=== PATIENT | female | born 1975 | race Caucasian/White ===

== ENCOUNTER 2022-12-03 12:11 | Emergency (ER) | payer OTHER, SELFPAY ==
--- NOTE | 2022-12-03 12:27 | ED.GENADULT ---
HPI - General Adult General Chief complaint: Overdose Stated complaint: ABD PAIN Time Seen by Provider: 12/03/22 12:26 Source: patient and EMS Mode of arrival: EMS Limitations: no limitations History of Present Illness HPI narrative: Patient is a 47 year old assigned female at with no reported medical history presenting to the emergency department today after drug use. Patient was immediately given intranasal narcan and became able to answer questions more appropriately. Patient states that she used earlier today but did not specify what she used. Patient was found falling asleep by bystanders. Patient denies any dizziness, lightheadedness, abdominal pain, nausea, vomiting, fever, chills, blurry vision, double vision, loss of vision, chest pain, difficulty breathing, shortness of breath, back pain, night sweats, pain with urination, increased urinary frequency, increased urinary urgency, blood in her urine or stool, syncope or a near syncopal episode, recent trauma or falls, bowel incontinence, bladder incontinence, bowel retention, bladder retention, or any other complaints at this time. Onset (ago): hour(s) Relieving factors: none Exacerbating factors: none Associated symptoms: denies other symptoms Treatments prior to arrival: none Related Data Allergies Allergy/AdvReac Type Severity Reaction Status Date / Time No Known Allergies Allergy Verified 12/03/22 12:27 Review of Systems Constitutional: Constitutional: Reports no additional constitutional complaints, Denies chills, Denies fever(s) and Denies night sweats Eyes: Eyes: Reports no additional eye complaints, Denies blurry vision, Denies change in vision, Denies diplopia, Denies eye discharge, Denies loss of vision and Denies eye pain ENT: Denies dizziness Cardiovascular: Cardiovascular: Reports no additional cardiovascular complaints, Denies chest pain, Denies lightheadedness, Denies Loss of Consciousness and Denies dyspnea Respiratory: Respiratory: Reports no additional respiratory complaints and Denies dyspnea Gastrointestinal: Gastrointestinal: Reports no additional gastrointestinal complaints, Denies abdominal pain, Denies melena, Denies hematochezia, Denies change in bowel habits and Denies change in stool character Genitourinary: Genitourinary: Denies hematuria, Denies urinary frequency, Denies dysuria, Denies urinary incontinence, Denies urinary hesitancy and Denies urinary urgency Musculoskeletal: Musculoskeletal: Reports no additional musculoskeletal complaints, Denies numbness and Denies tingling Neurologic: Denies dizziness, Denies loss of vision, Denies numbness and Denies tingling Psychiatric: Psychiatric: Reports no additional psychiatric complaints Endocrine: Endocrine: Reports no additional endocrine complaints Hematologic/Lymphatic: Hematologic/Lymphatic: Reports no additional hematologic/lymphatic complaints Allergic/Immunologic: Allergic/Immunologic: Reports no additional allergic/immunologic complaints [facility] Past Medical History Attestation statement: The following information was validated with the patient. Source: old records reviewed and nursing notes reviewed Social History Social History Alcohol intake: current Smoked in Last 30 Days: Yes Use of substances other than those prescribed or required for medical reasons: No Advance Directives: No Advance Directives Information Provided: No Physical Exam ED Vital Signs: Vital Signs - 24 hr 12/03/22 12:35 12/03/22 13:43 12/03/22 13:53 Temperature 97.6 F 97.7 F Pulse Rate 62 56 58 Respiratory Rate 20 17 19 Blood Pressure 114/73 106/66 Pulse Oximetry 95 97 97 Oxygen Delivery Method Room Air Nasal Cannula Room Air Oxygen Flow Rate 2 12/03/22 15:24 12/03/22 16:14 12/03/22 17:32 Temperature 97.1 F Pulse Rate 55 53 54 Respiratory Rate 19 18 19 Blood Pressure 98/60 100/70 121/77 Pulse Oximetry 97 99 97 Oxygen Delivery Method Nasal Cannula Nasal Cannula Room Air Oxygen Flow Rate 3 2 BMI result Body Mass Index 35.1 Const General: cooperative, no acute distress, alert and awake Nutritional Appearance: well nourished Orientation/consciousness: patient oriented x3 Limitations: no limitations [facility] Head: Yes normal to inspection and Yes atraumatic Ears: hearing grossly normal bilaterally and external ears normal General nose exam: Normal external nose present, no nasal discharge noted and no epistaxis Face and sinus: Yes normal facial exam, No abrasion and No laceration Mouth: Normal oral and palatal mucosa present, no drooling and no muffled voice Eyes General: appearance normal, both eyes and all related structures Periorbital: periorbital findings normal Eyelids: Yes eyelids normal Conjunctivae: conjunctivae normal Pupils: Equal, round and reactive pupils present and Pinpoint pupils bilaterally EOM: EOMs intact bilaterally Neck Neck: Yes normal visual inspection, Yes full ROM and Yes no lymphadenopathy Chest Chest palpation & inspection: normal inspection of the chest Resp Effort & Inspection: normal respiratory effort and able to speak in complete sentences Auscultation: clear to auscultation bilaterally Cardio Rate: regular rate Rhythm: regular rhythm GI Inspection: Yes normal to inspection Palpation (GI): Soft to palpation, not firm, nontender and no guarding Neuro General: patient oriented x3 and moves all extremities Cranial nerves: Yes Equal, round and reactive pupils present Cognition (Neuro): normal cognition Motor exam (neuro): 5/5 motor strength present throughout Sensory Exam: Normal double simultaneous stimulation for sensation Coordination: [id number] test normal Extrem General: Yes normal to inspection, Yes full ROM and Yes capillary refill normal Psych Appearance: grossly normal Mental Status: mental status grossly normal Affect: normal affect Attitude: cooperative Thought process: Normal thought process present Thought content: Normal thought content present Insight: Good insight present (Psych) Course Reevaluation(s) Reevaluation #1: Patient is seen by the care team and reports that she did not use any drugs today. She reports this to me as well. She does not wish for any resources regarding detox. The patient would like to be discharged at this time. Time: 18:31 Medications Administered Discontinued Medications Generic Name Dose Route Start Last Admin Trade Name Freq PRN Reason Stop Dose Admin Naloxone HCl 4 mg 12/03/22 15:59 12/03/22 17:44 Naloxone Hcl Nasal 4 Mg [place] NOSTRILALT 12/03/22 16:00 4 mg ONCE ONE Administration Medical Decision Making Medical Decision Making [facility] Narrative: Patient is a 47 year old assigned female at with no reported medical history presenting to the emergency department today after drug use. Patient's physical exam was as noted in the physical exam portion of this note. Patient's blood work was unremarkable. Patient's urine showed is pending at this time, including the patient's drug urine screen. Patient's EKG was unremarkable. I explained my physical exam findings as well as all test results to the patient. I answered all questions asked by the patient. Patient is resting comfortably at this time and will be placed in physician observation until she is awake enough to discharge safely and/or recovery team meets with the patient and determines a disposition. Differential Diagnosis Differential Diagnoses: The differential diagnosis associated with the presentation includes Overdose Drug use Opiate use Admission/Observation Consideration of admission/observation: Escalation of care including admission/observation considered Patient would have been admitted to the hospital had her work up had any findings where hospital admission was appropriate and her clinical presentation warranted hospital admission. Lab Data MDM Lab Attestation statement: I reviewed the patient's lab results. My interpretation of these studies and their corresponding values is that they are grossly normal with the exception of the pending urine. 12/03/22 12:57 12/03/22 12:57 Labs: Lab Results 12/03/22 12/03/22 12/03/22 Range/Units 12:57 12:57 12:57 WBC 5.0 (4.8-10.8) X10*3/uL RBC 5.84 H (4.20-5.50) X10*6/uL Hgb 13.4 (12.0-16.0) g/dl Hct 43.0 (37.0-47.0) % MCV 73.6 L (80.0-98.0) fL MCH 22.9 L (27.0-33.0) pg MCHC 31.2 (31.0-35.0) g/dl RDW 14.8 (11.0-16.0) % Plt Count 215 (160-400) X10*3/uL MPV 10.4 (9.4-12.3) fL Immature Gran % (Auto) 0.2 (0.0-0.4) % Neut % (Auto) 54.9 (45-73) % Lymph % (Auto) 26.9 (20-40) % Sheridan % (Auto) 15.2 H (2-11) % Eos % (Auto) 2.2 (0-4) % Baso % (Auto) 0.6 (0-2) % Lymph # (Auto) 1.3 (1.2-4.9) X10*3/uL Sheridan # (Auto) 0.8 (0.1-1.2) X10*3/uL Eos # (Auto) 0.1 (0.0-0.4) X10*3/uL Baso # (Auto) 0.0 (0.0-0.2) X10*3/uL Abs Immat Gran (auto) 0.01 (0.00-0.03) X10*3/uL Absolute Neuts (auto) 2.7 (2.0-8.3) x10*3/uL Absolute Nucleated RBC 0.000 (0.0-0.012) X10*3/uL Nucleated RBC % (auto) 0.0 (0.0-0.2) /100WBC Sodium 143 (135-145) mmol/L Potassium 3.9 (3.3-5.1) mmol/L Chloride 106 (96-108) mmol/L Carbon Dioxide 28 (22-29) mmol/L Anion Gap 13 (12-20) BUN 17 H (9-16) mg/dL Creatinine 0.69 (0.5-1.4) mg/dL Estim Creat Clear Calc 120.9 Estimated GFR > 60 Random Glucose 96 (60-115) mg/dL Calcium 9.2 (8.4-10.2) mg/dL Total Bilirubin 0.9 (0.0-1.0) mg/dL AST 32 H (5-31) U/L ALT 22 (0-31) U/L Alkaline Phosphatase 98 (39-117) U/L Total Protein 7.6 (6.5-8.0) g/dL Albumin 3.6 (3.5-5.0) g/dL Salicylates (15-30) mg/dL Acetaminophen (<30) mcg/mL Ethyl Alcohol < 10 mg/dL COVID-19 ([facility]) Negative (Negative) COVID-19 Clin Com See Note 12/03/22 Range/Units 12:57 WBC (4.8-10.8) X10*3/uL RBC (4.20-5.50) X10*6/uL Hgb (12.0-16.0) g/dl Hct (37.0-47.0) % MCV (80.0-98.0) fL MCH (27.0-33.0) pg MCHC (31.0-35.0) g/dl RDW (11.0-16.0) % Plt Count (160-400) X10*3/uL MPV (9.4-12.3) fL Immature Gran % (Auto) (0.0-0.4) % Neut % (Auto) (45-73) % Lymph % (Auto) (20-40) % Sheridan % (Auto) (2-11) % Eos % (Auto) (0-4) % Baso % (Auto) (0-2) % Lymph # (Auto) (1.2-4.9) X10*3/uL [place]idan # (Auto) (0.1-1.2) X10*3/uL Eos # (Auto) (0.0-0.4) X10*3/uL Baso # (Auto) (0.0-0.2) X10*3/uL Abs Immat Gran (auto) (0.00-0.03) X10*3/uL Absolute Neuts (auto) (2.0-8.3) x10*3/uL Absolute Nucleated RBC (0.0-0.012) X10*3/uL Nucleated RBC % (auto) (0.0-0.2) /100WBC Sodium (135-145) mmol/L Potassium (3.3-5.1) mmol/L Chloride (96-108) mmol/L Carbon Dioxide (22-29) mmol/L Anion Gap (12-20) BUN (9-16) mg/dL Creatinine (0.5-1.4) mg/dL Estim Creat Clear Calc Estimated GFR Random Glucose (60-115) mg/dL Calcium (8.4-10.2) mg/dL Total Bilirubin (0.0-1.0) mg/dL AST (5-31) U/L ALT (0-31) U/L Alkaline Phosphatase (39-117) U/L Total Protein (6.5-8.0) g/dL Albumin (3.5-5.0) g/dL Salicylates < 5.0 L (15-30) mg/dL Acetaminophen < 17 (<30) mcg/mL Ethyl Alcohol mg/dL COVID-19 ([facility]) (Negative) COVID-19 Clin Com Independent Interpretation I performed an independent interpretation of an: EKG Interpretation: Vent. Rate: 059 BPM ? ? Atrial Rate: 059 BPM P-R Int: 144 ms? QRS Dur: 092 ms QT Int: 452 ms ? ? ? P-R-T Axes: 066 081 062 degrees QTc Int: 447 ms ? Sinus bradycardia Otherwise normal ECG No previous ECGs available ? Referred By: Najma Guthrie ? Electronically Signed By:NELI CLIFTON Dictated By: Neli Cleveland DO Signed By: Electronically signed by Neli Cleveland DO 12/03/22 4438 Independent Historian Clinical information obtained from an independent historian. History obtained from or confirmed by: EMS (EMS provided additional history and confirmed the history provided by the patient.) Chronic Conditions Patient?s care impacted by: Other (drug use) Social Determinants Patient?s care significantly limited by Social Determinants of Health including: Other Social Determinant of Health (drug use) Critical Care Time Critical Care Time Critical Care Time: Yes Total Critical Care Time: 40 Attestation: I spent 40 minutes of Critical Care Time with this patient. This does not include time spent on separately reported billable procedures. Discharge Plan Discharge Clinical Impression: Drug overdose Patient Disposition: Home, Self-Care Instructions: Adult Overdose (ED) Additional Instructions: You came in because you were unresponsive at a bus stop. Your responded to Narcan. You declined any help with resources regarding detox. You may follow-up with her primary doctor
--- NOTE | 2022-12-03 12:27 | ECG_ITS ---
Test Reason : OVERDOSE Blood Pressure : / mmHG Vent. Rate : 059 BPM Atrial Rate : 059 BPM P-R Int : 144 ms QRS Dur : 092 ms QT Int : 452 ms P-R-T Axes : 066 081 062 degrees QTc Int : 447 ms Sinus bradycardia Otherwise normal ECG No previous ECGs available Referred By: Namja Guthrie Electronically Signed By:NELI CLIFTON
--- NOTE | 2022-12-03 12:30 | PC.NURSE ---
pt unable to stay awake. pt drowsy. pt given narcan. pt more alert. vss.
[2022-12-03 12:35] VITALS: BP 114/73; BP 132/82; PULSE 57; PULSE 62; RESP 20; TEMP 36.4; O2SAT 95; O2SAT 97; BMI 35.1
--- NOTE | 2022-12-03 12:40 | PC.NURSE ---
pt administered narcan 4mg intral nasal upon arrival from ems, pt very drowsy, with pin point pupils, pt did have a good response to the narcan originally-answering question/yawning/shivering and staying awake, ns on the monitor in the 60's sating 96% on room air, capnography at 33
--- NOTE | 2022-12-03 12:43 | PC.NURSE ---
pt slightly drowsy but wakes up to verbal stimulus. vss.
--- NOTE | 2022-12-03 12:48 | PC.NURSE ---
pt o2 sat drop to 85. pt put on 3L nasal cannula. sat maintain 96%.
[2022-12-03 13:00] LABS: MANUAL DIFF FLAG NO
[2022-12-03 13:02] LABS: Basophils Percent Auto 0.6 % (0-2); Eosinophils Absolute Auto 0.1 X10*3/uL (0.0-0.4); Eosinophils Percent Auto 2.2 % (0-4); Hemoglobin 13.4 g/dl (12.0-16.0); Imm Gran Abs Auto 0.01 X10*3/uL (0.00-0.03); Imm Gran Pct Auto 0.2 % (0.0-0.4); Lymphocytes Absolute Auto 1.3 X10*3/uL (1.2-4.9); Lymphocytes Percent Auto 26.9 % (20-40); Mean Corpuscular HGB Conc 31.2 g/dl (31.0-35.0); Mean Corpuscular Hemoglobin 22.9 pg (27.0-33.0); Mean Corpuscular Volume 73.6 fL (80.0-98.0); Mean Platelet Volume 10.4 fL (9.4-12.3); Monocytes Absolute Auto 0.8 X10*3/uL (0.1-1.2); Monocytes Percent Auto 15.2 % (2-11); Neutrophils Absolute Auto 2.7 x10*3/uL (2.0-8.3); Neutrophils Percent Auto 54.9 % (45-73); Platelet Count 215 X10*3/uL (160-400); Red Blood Count 5.84 X10*6/uL (4.20-5.50); Red Cell Distribution Width 14.8 % (11.0-16.0)
[2022-12-03 13:17] LABS: COVID-19 Test Negative (Negative); IDNOW Serial# 55D5AD1C
[2022-12-03 13:27] LABS: Acetaminophen LAB < 17 mcg/mL (<30); Salicylate < 5.0 mg/dL (15-30)
[2022-12-03 13:32] LABS: Alanine Aminotransferase 22 U/L (0-31); Albumin Level 3.6 g/dL (3.5-5.0); Alkaline Phosphatase 98 U/L (39-117); Anion Gap 13 (12-20); Aspartate Amino Transferase 32 U/L (5-31); Bilirubin Total 0.9 mg/dL (0.0-1.0); Blood Urea Nitrogen 17 mg/dL (9-16); Calcium 9.2 mg/dL (8.4-10.2); Carbon Dioxide 28 mmol/L (22-29); Chloride 106 mmol/L (96-108); Creatinine Clr Calc Pharmacy 120.9; Estimated Glomerular Filt Rate > 60; Ethanol < 10 mg/dL; Glucose Random 96 mg/dL (60-115); Potassium 3.9 mmol/L (3.3-5.1); Sodium 143 mmol/L (135-145); Total Protein 7.6 g/dL (6.5-8.0)
[2022-12-03 13:43] VITALS: PULSE 56; RESP 17; O2SAT 97
--- NOTE | 2022-12-03 13:44 | PC.NURSE ---
pt sleeping, drowsy. pt awakens to verbal stimuli.
[2022-12-03 13:53] VITALS: BP 106/66; PULSE 58; RESP 19; TEMP 36.5; O2SAT 97
--- NOTE | 2022-12-03 14:59 | PC.NURSE ---
pt continous on being sleepy but awakes to voice command, vs stable, camnography at 34, respirations range from 14-18, ns on the monitor
[2022-12-03 15:24] VITALS: BP 98/60; PULSE 55; RESP 19; TEMP 36.2; O2SAT 97
[2022-12-03 16:14] VITALS: BP 100/70; PULSE 53; RESP 18; O2SAT 99
--- NOTE | 2022-12-03 17:06 | HO.SUDE ---
Addendum entered by Jamaal Landry 12/03/22 18:25: Met with pt again to complete SUDE. Pt informs she has not been using any substances and is not currently on MAT, pt states she was just tired today when they gave her narcan but says she did not OD and has never OD. Pt informs she is not interested in recovery supports as she is sober. Original Note: Attempted to meet with pt in ED9 to complete SUDE, however at this time pt is difficult to wake and is unable to communicate. Will follow up or have Care Team finish the SUDE when she is more alert.
[2022-12-03 17:32] VITALS: BP 121/77; PULSE 54; RESP 19; O2SAT 97
[2022-12-03] MEDS: Naloxone HCl Nasal 4 MG SPRAY NOSTRILALT (17:44)
--- NOTE | 2022-12-03 18:06 | PC.NURSE ---
pt alert and oriented. pt ambulated to bathroom. pt unable to provide urine sample despite our efforts to explain the need for urine sample, pt exited bathroom without sample.
[2022-12-03] MEDS: Naloxone HCl Nasal TAKE HOME 4 MG SPRAY 8 MG NOSTRILALT (18:58)
== END 2022-12-03 19:05 | disposition home or self-care (01) ==
PROVIDERS: Physician Assistant Medical; Emergency Provider Emergency Medicine
DX: T50.901A Poisoning by unspecified drugs, medicaments and biological substances, accidental (unintentional), initial encounter (principal); Y92.521 Bus station as the place of occurrence of the external cause
CPT/HCPCS: 80053; 80143; 80179; 80307; 85025; 87635; 93005; 99284; 99285